=== PATIENT | female | born 2000 | race African-American/Black ===

== ENCOUNTER 2024-02-29 11:30 | Emergency (ER) | payer MEDICAID ==
[~2024-02-29] VITALS: Ht 162.6 cm; Wt 65.0 kg
[2024-02-29 11:36] VITALS: TEMP 98.4; O2SAT 99
[2024-02-29 13:16] LABS: CLARITY URINE CLEAR (CLEAR); COLOR URINE YELLOW (YELLOW); GLUCOSE URINE NEGATIVE (NEGATIVE); KETONES URINE NEGATIVE (NEGATIVE); LEUKOCYTE ESTERASE URINE NEGATIVE (NEGATIVE); NITRITE URINE NEGATIVE (NEGATIVE); OCCULT BLOOD URINE NEGATIVE (NEGATIVE); PH URINE 7.5 (4.5-8.0); PROTEIN URINE NEGATIVE (NEGATIVE); SPECIFIC GRAVITY URINE 1.008 (1.005-1.030); UROBILINOGEN URINE 0.2 E.U./dL (0.2-1.0)
[2024-02-29 13:19] LABS: BASOPHILS % 0.4 % (0.0-2.0); DIFFERENTIAL COMMENT 0; EOSINOPHILS % 1.6 % (0.0-5.0); HEMOGLOBIN. 11.9 g/dL (12.0-16.0); LYMPHOCYTES % 40.1 % (20.0-50.0); MEAN CORPUSCULAR HEMOGLOBIN 23.8 pg (28.0-32.0); MEAN CORPUSCULAR HGB CONC 32.3 g/dL (31.0-37.0); MEAN CORPUSCULAR VOLUME 73.8 fL (81.0-99.0); MEAN PLATELET VOLUME 7.5 fl (7.4-10.4); MONOCYTES % 9.5 % (2.0-8.0); NEUTROPHILS % 48.4 % (40.0-76.0); PLATELET 373 x1000/uL (130-400); RED BLOOD CELL COUNT 5.01 mill/uL (4.2-5.4); WHITE BLOOD COUNT 4.1 x1000/uL (4.5-11.0)
[2024-02-29 13:21] LABS: CHLORIDE 104 mEq/L (98-107); SODIUM 139 mEq/L (136-145)
[2024-02-29 13:22] LABS: CARBON DIOXIDE 28 mEq/L (21-32)
[2024-02-29 13:23] LABS: CALCIUM 10.2 mg/dL (8.7-10.4)
[2024-02-29 13:28] LABS: CREATININE 0.8 mg/dL (0.6-1.0); GLUCOSE 79 mg/dL (70-105); UREA NITROGEN BLOOD 7 mg/dL (9-23)
[2024-02-29] MEDS: KETOROLAC 15MG/ML VIAL IM ONE (15:04)
[2024-02-29] MEDS ORDERED: CEPH500C2 MT (15:40)
[2024-02-29 15:49] VITALS: BP 113/73; PULSE 77; RESP 14
== END 2024-02-29 15:57 | disposition home or self-care (01) ==
LOC: ER 11:30
DX: R07.9 Chest pain, unspecified (principal); F41.9 Anxiety disorder, unspecified; J45.909 Unspecified asthma, uncomplicated; F31.9 Bipolar disorder, unspecified
CPT/HCPCS: 99285; 71045; 80048; 81003; 81025; 85025; 36415; 93005; 96372; J1885

== ENCOUNTER 2024-03-01 20:37 | Emergency (ER) | payer MEDICAID ==
[~2024-03-01] VITALS: Ht 165.1 cm; Wt 55.5 kg
[~2024-03-01 20:37] MED LIST: CEPH500C2 MT
[2024-03-01 22:04] VITALS: BP 117/81; PULSE 72; RESP 16; TEMP 97.4; O2SAT 99
[2024-03-02] MEDS ORDERED: PSEU-207 MT (00:15)
[2024-03-02] MEDS ORDERED: DOXY100C5 MT (00:15)
[2024-03-02] MEDS ORDERED: HIBIL TP (00:16)
== END 2024-03-02 01:36 | disposition home or self-care (01) ==
LOC: ER 20:37
DX: L73.9 Follicular disorder, unspecified (principal); J32.9 Chronic sinusitis, unspecified; F41.9 Anxiety disorder, unspecified; J45.909 Unspecified asthma, uncomplicated; F31.9 Bipolar disorder, unspecified
CPT/HCPCS: 99281

== ENCOUNTER 2024-03-03 09:56 | Emergency (ER) | payer MEDICAID ==
[~2024-03-03] VITALS: Ht 167.6 cm; Wt 60.0 kg
[~2024-03-03 09:56] MED LIST changes: +DOXY100C5 MT; +HIBIL TP; +PSEU-207 MT
[2024-03-03 10:03] VITALS: BP 113/74; PULSE 92; RESP 20; TEMP 97.2; O2SAT 100
[2024-03-03 11:39] LABS: BASOPHILS % 0.4 % (0.0-2.0); DIFFERENTIAL COMMENT 0; EOSINOPHILS % 2.3 % (0.0-5.0); HEMATOCRIT. 36.8 % (36.0-48.0); HEMOGLOBIN. 11.8 g/dL (12.0-16.0); LYMPHOCYTES % 46.9 % (20.0-50.0); MEAN CORPUSCULAR HEMOGLOBIN 23.7 pg (28.0-32.0); MEAN CORPUSCULAR HGB CONC 32.1 g/dL (31.0-37.0); MEAN CORPUSCULAR VOLUME 73.8 fL (81.0-99.0); MEAN PLATELET VOLUME 7.7 fl (7.4-10.4); MONOCYTES % 9.3 % (2.0-8.0); NEUTROPHILS % 41.1 % (40.0-76.0); PLATELET 366 x1000/uL (130-400); RED BLOOD CELL COUNT 4.98 mill/uL (4.2-5.4); RED CELL DISTRIBUTION WIDTH 13.9 % (11.6-14.6); WHITE BLOOD COUNT 3.7 x1000/uL (4.5-11.0)
[2024-03-03 11:43] LABS: CHLORIDE 104 mEq/L (98-107); POTASSIUM 4.4 mEq/L (3.5-5.1); SODIUM 139 mEq/L (136-145)
[2024-03-03 11:44] LABS: CALCIUM 10.3 mg/dL (8.7-10.4); CARBON DIOXIDE 29 mEq/L (21-32)
[2024-03-03 11:49] LABS: CREATININE 0.9 mg/dL (0.6-1.0); GLUCOSE 83 mg/dL (70-105); UREA NITROGEN BLOOD 6 mg/dL (9-23)
[2024-03-03] MEDS: KETOROLAC 30MG/ML VIAL IV STA (12:55)
[2024-03-03] MEDS: KETOROLAC 30MG/ML VIAL IV NR (12:55)
[2024-03-03] MEDS ORDERED: IOHEXOL-300 100 ML BOTTLE ONE (14:39)
== END 2024-03-03 15:05 | disposition home or self-care (01) ==
LOC: ER 09:56
DX: J02.9 Acute pharyngitis, unspecified (principal)
CPT/HCPCS: 80048; 81025; 85025; 36415; 70492; 96374; 99285; Q9967; J1885; Z7610 ×2

== ENCOUNTER 2024-10-27 08:37 | Emergency (ER) | payer MEDICAID ==
[~2024-10-27] VITALS: Ht 162.6 cm; Wt 59.0 kg
[2024-10-27 08:42] VITALS: O2SAT 98
[2024-10-27 08:43] VITALS: BP 125/77; PULSE 73; RESP 16; TEMP 98.6; O2SAT 100
[2024-10-27] MEDS ORDERED: GLYC30DR4 EACHEYE (09:44)
== END 2024-10-27 09:59 | disposition home or self-care (01) ==
LOC: ER 08:47
DX: H53.8 Other visual disturbances (principal); J45.909 Unspecified asthma, uncomplicated; F31.9 Bipolar disorder, unspecified; F41.9 Anxiety disorder, unspecified; Z79.899 Other long term (current) drug therapy
CPT/HCPCS: 99282